=== PATIENT | female | born 1960 | race Native Hawaiian/Other Pacific Islander ===

== ENCOUNTER 2020-07-01 08:34 | Outpatient (CLI) | payer OTHER ==
[2020-07-01 09:23] LABS: POTASSIUM 3.7 mmol/L (3.6-5.2)
[2020-07-01 10:03] LABS: PLATELET COUNT 298 K/uL (152-353)
== END 2020-07-01 19:13 | disposition home or self-care (01) ==
LOC: LABW 08:34
PROVIDERS: Internal Medicine
DX: I12.9 Hypertensive chronic kidney disease with stage 1 through stage 4 chronic kidney disease, or unspecified chronic kidney disease (principal); N18.3 Chronic kidney disease, stage 3 (moderate)
CPT/HCPCS: 36415; 80048; 82040; 82570; 83883; 84100; 84155; 84550; 85027

== ENCOUNTER 2023-02-19 11:07 | Outpatient (CLI) | payer OTHER | END 2023-02-19 20:17 | disposition home or self-care (01) | LOC: US 11:07 | PROVIDERS: ATTEND Nurse Practitioner Family | DX: R10.30 Lower abdominal pain, unspecified (principal) ==

== ENCOUNTER 2023-02-25 17:42 | Outpatient (CLI) | payer OTHER | END 2023-02-25 19:11 | disposition home or self-care (01) | LOC: RAD 17:42 | PROVIDERS: ATTEND Nurse Practitioner Family | DX: S76.012D Strain of muscle, fascia and tendon of left hip, subsequent encounter (principal); Y92.89 Other specified places as the place of occurrence of the external cause ==

== ENCOUNTER 2023-05-05 15:54 | Outpatient (CLI) | payer OTHER ==
[2023-05-05 16:18] LABS: PLATELET COUNT 249 K/uL (152-353)
[2023-05-05 16:45] LABS: POTASSIUM 3.9 mmol/L (3.6-5.2)
== END 2023-05-05 22:15 | disposition home or self-care (01) ==
LOC: LABW 15:54
PROVIDERS: ATTEND Student in an Organized Health Care Education/Training Program
DX: I12.9 Hypertensive chronic kidney disease with stage 1 through stage 4 chronic kidney disease, or unspecified chronic kidney disease (principal); N18.31 Chronic kidney disease, stage 3a; R80.8 Other proteinuria; N28.1 Cyst of kidney, acquired; E87.6 Hypokalemia; E55.9 Vitamin D deficiency, unspecified; R82.81 Pyuria; R63.4 Abnormal weight loss; E79.0 Hyperuricemia without signs of inflammatory arthritis and tophaceous disease; R31.29 Other microscopic hematuria; D63.1 Anemia in chronic kidney disease; N25.81 Secondary hyperparathyroidism of renal origin; E11.21 Type 2 diabetes mellitus with diabetic nephropathy; D50.8 Other iron deficiency anemias; E78.2 Mixed hyperlipidemia; R94.6 Abnormal results of thyroid function studies; Z79.899 Other long term (current) drug therapy
CPT/HCPCS: 36415; 80053; 81002; 82306; 82570; 82728; 83540; 83550; 83735; 83970; 84100; 84156; 84550; 85027

== ENCOUNTER 2023-09-05 08:50 | Outpatient (CLI) | payer OTHER ==
[2023-09-05 09:19] LABS: PLATELET COUNT 256 K/uL (152-353)
[2023-09-05 09:34] LABS: POTASSIUM 3.4 mmol/L (3.6-5.2)
== END 2023-09-05 19:00 | disposition home or self-care (01) ==
LOC: LABW 08:50
PROVIDERS: ATTEND Student in an Organized Health Care Education/Training Program
DX: I12.9 Hypertensive chronic kidney disease with stage 1 through stage 4 chronic kidney disease, or unspecified chronic kidney disease (principal); N18.31 Chronic kidney disease, stage 3a; R80.8 Other proteinuria; N28.1 Cyst of kidney, acquired; E87.6 Hypokalemia; E55.9 Vitamin D deficiency, unspecified; R82.81 Pyuria; R63.4 Abnormal weight loss; E79.0 Hyperuricemia without signs of inflammatory arthritis and tophaceous disease; R31.29 Other microscopic hematuria; D63.1 Anemia in chronic kidney disease; N25.81 Secondary hyperparathyroidism of renal origin; E11.21 Type 2 diabetes mellitus with diabetic nephropathy; D50.8 Other iron deficiency anemias; E78.2 Mixed hyperlipidemia; R94.6 Abnormal results of thyroid function studies; Z79.899 Other long term (current) drug therapy
CPT/HCPCS: 36415; 80053; 81002; 82306; 82570; 82728; 83036; 83540; 83550; 83735; 83970; 84100; 84156; 84550; 85027